=== PATIENT | female | born 1940 | race African-American/Black ===

== ENCOUNTER 2018-03-04 18:03 | Inpatient (IN) | payer MEDICARE, MEDICAID ==
[~2018-03-04] VITALS: Ht 154.9 cm; Wt 85.0 kg
[~2018-03-04 18:03] MED LIST: ALLO300T PO; CARV25TA2 PO; COLC0.6T34 PO; CRESTOR40 MG PO; FURO40TA4 PO; GLIP5TAB10 PO; LOSA25TA4 PO
[2018-03-04] MEDS ORDERED: ASPIRIN 325 MG TABLET PO ONE (18:15)
--- NOTE | 2018-03-04 18:24 | EKG ---
[facility] [address] [place] [address] Test Date: 2018-03-04 Test Time: 18:19:04 Pat Name: LINDA PULIDO Department: Room: Gender: Female [employer]: : 1940 Requested By: NASREEN ESTEVEZ Order Number: [id number] Reading MD: Hunter Steel MD Measurements Intervals [place] Rate: 83 P: 64 CT: 182 QRS: 95 QRSD: 152 T: -71 QT: 414 QTc: 492 Interpretive Statements SINUS RHYTHM PROBABLE V-PACING Electronically Signed On 03-05-2018 10:44:32 CDT by Hunter Steel MD
[2018-03-04 18:30] LABS: BASO % 0 % (0-3); EOS % 0 % (0-3); HEMATOCRIT 35.7 % (36.0-47.0); HEMOGLOBIN 11.6 g/dL (12.0-15.5); LYMPH # 1.6 x10^3/uL (1.0-4.8); LYMPH % 26 % (24-48); MEAN CORPUSCULAR HEMOGLOBIN 28 pg (25-35); MEAN CORPUSCULAR HGB CONC 32 g/dL (31-37); MEAN CORPUSCULAR VOLUME 87 fL (79-100); MONO # 0.7 x10^3/uL (0.0-1.1); MONO % 11 % (0-9); NEUT % 63 % (31-73); PLATELET COUNT 183 x10^3/uL (140-400); RED BLOOD COUNT 4.11 x10^6/uL (3.50-5.40); RED CELL DISTRIBUTION WIDTH 17.2 % (11.5-14.5); WHITE BLOOD COUNT 6.3 x10^3/uL (4.0-11.0)
[2018-03-04 18:36] LABS: BILIRUBIN,URINE NEGATIVE (NEG); CLARITY,URINE CLEAR; COLOR,URINE YELLOW; NITRITE,URINE NEGATIVE (NEG); PH,URINE 6.5; PROTEIN,URINE NEGATIVE (NEG-TRACE)
[2018-03-04 18:43] LABS: CALCIUM 9.1 mg/dL (8.5-10.1); CREATININE 1.6 mg/dL (0.6-1.0); GFR 37.9; POTASSIUM 4.1 mmol/L (3.5-5.1)
[2018-03-04 18:46] LABS: BACTERIA,URINE MODERATE /HPF (0-FEW); HYALINE CASTS, URINE FEW /HPF; RBC,URINE 0 /HPF (0-2); SQUAMOUS EPITHELIAL CELL,UR MANY /LPF
[2018-03-04 18:50] LABS: ALBUMIN 3.7 g/dL (3.4-5.0); ALBUMIN/GLOBULIN RATIO 0.9 (1.0-1.7); MAGNESIUM 2.4 mg/dL (1.8-2.4); TOTAL BILIRUBIN 0.3 mg/dL (0.2-1.0); TOTAL PROTEIN 7.6 g/dL (6.4-8.2)
--- NOTE | 2018-03-04 19:40 | PHYS DOC ---
Past Medical History Past Medical History: Diabetes-Type II, High Cholesterol, Heart Disease, Hypertension Past Surgical History: Cholecystectomy Additional Information: Nonsmoker Alcohol Use: None Drug Use: None Adult General Chief Complaint Chief Complaint: CHEST PAIN-CARDIAC NATURE HPI HPI 77-year-old female presents with report of "chest pressure" which started at approximately 1730 this afternoon. Patient reports radiation up into her neck. Reports some associated shortness of breath. Patient also reports she has been having some pain and discomfort behind her right knee. Denies leg swelling. Reports cardiac risk factors of prior CAD, high blood pressure, high cholesterol , and diabetes. Patient reports she felt very dizzy at that time. Denies fever or chills. Denies recent trauma. Review of Systems Review of Systems Constitutional: Denies fever or chills [] Eyes: Denies change in visual acuity, redness, or eye pain [] HENT: Denies nasal congestion or sore throat [] Respiratory: Denies cough or shortness of breath [] Cardiovascular: Reports chest pressure; denies palpitations GI: Denies abdominal pain, nausea, vomiting, or diarrhea [] : Denies dysuria or hematuria [] Musculoskeletal: Denies back pain or joint pain [] Integument: Denies rash or skin lesions [] Neurologic: Denies headache, focal weakness or sensory changes; reports dizziness Complete systems were reviewed and found to be within normal limits, except as documented in this note. Current Medications Current Medications Current Medications Medications (Trade) Dose Ordered Sig/Talha Start Time Stop Time Status Last Admin Dose Admin Aspirin (Flakita Aspirin) 325 mg 1X ONCE 03/04/18 18:15 03/04/18 18:46 DC Ceftriaxone Sodium 50 ml @ 100 mls/hr 1X ONCE 03/04/18 19:30 03/04/18 19:59 DC 03/04/18 21:20 100 MLS/HR Allergies Allergies Physical Exam Physical Exam Constitutional: Well developed, well nourished, no acute distress, non-toxic appearance. [] HENT: Normocephalic, atraumatic, oropharynx moist Eyes: PERRL, EOMI, conjunctiva normal, no discharge. [] Neck: Normal range of motion, no tenderness, supple, no stridor. [] Cardiovascular: Heart rate regular rhythm, no murmur [] Lungs & Thorax: Bilateral breath sounds clear to auscultation [] Abdomen: Soft, no tenderness Skin: Warm, dry, no erythema, no rash. [] Back: No tenderness, no CVA tenderness. [] Extremities: No tenderness, ROM intact, no edema. [] Neurologic: Alert and oriented X 3, normal motor function, normal sensory function, no focal deficits noted. [] Psychologic: Affect normal, judgement normal, mood normal. [] Current Patient Data Vital Signs Vital Signs Date Time Temp Pulse Resp B/P (MAP) Pulse Ox O2 Delivery O2 Flow Rate FiO2 03/04/18 21:00 78 20 138/68 (91) 100 Room Air 03/04/18 18:03 98.2 98.2 Lab Values Laboratory Tests Test 03/04/18 18:25 03/04/18 18:30 White Blood Count 6.3 x10^3/uL (4.0-11.0) Red Blood Count 4.11 x10^6/uL (3.50-5.40) Hemoglobin 11.6 g/dL (12.0-15.5) L Hematocrit 35.7 % (36.0-47.0) L Mean Corpuscular Volume 87 fL (79-100) Mean Corpuscular Hemoglobin 28 pg (25-35) Mean Corpuscular Hemoglobin Concent 32 g/dL (31-37) Red Cell Distribution Width 17.2 % (11.5-14.5) H Platelet Count 183 x10^3/uL (140-400) Neutrophils (%) (Auto) 63 % (31-73) Lymphocytes (%) (Auto) 26 % (24-48) Monocytes (%) (Auto) 11 % (0-9) H Eosinophils (%) (Auto) 0 % (0-3) Basophils (%) (Auto) 0 % (0-3) Neutrophils # (Auto) 4.0 x10^3uL (1.8-7.7) Lymphocytes # (Auto) 1.6 x10^3/uL (1.0-4.8) Monocytes # (Auto) 0.7 x10^3/uL (0.0-1.1) Eosinophils # (Auto) 0.0 x10^3/uL (0.0-0.7) Basophils # (Auto) 0.0 x10^3/uL (0.0-0.2) D-Dimer (Roro) 0.67 ug/mlFEU (0.00-0.50) H Sodium Level 141 mmol/L (136-145) Potassium Level 4.1 mmol/L (3.5-5.1) Chloride Level 106 mmol/L (98-107) Carbon Dioxide Level 27 mmol/L (21-32) Anion Gap 8 (6-14) Blood Urea Nitrogen 27 mg/dL (7-20) H Creatinine 1.6 mg/dL (0.6-1.0) H Estimated GFR (Cockcroft-Gault) 37.9 BUN/Creatinine Ratio 17 (6-20) Glucose Level 122 mg/dL (70-99) H Calcium Level 9.1 mg/dL (8.5-10.1) Magnesium Level 2.4 mg/dL (1.8-2.4) Total Bilirubin 0.3 mg/dL (0.2-1.0) Aspartate Amino Transferase (AST) 17 U/L (15-37) Alanine Aminotransferase (ALT) 23 U/L (14-59) Alkaline Phosphatase 80 U/L (46-116) Creatine Kinase 151 U/L (26-192) Creatine Kinase MB (Mass) 0.9 ng/mL (0.0-3.6) Creatine Kinase MB Relative Index 0.6 % (0-4) Troponin I Quantitative < 0.017 ng/mL (0.000-0.055) KP-Mlp-N-Type Natriuretic Peptide 1495 pg/mL (0-449) H Total Protein 7.6 g/dL (6.4-8.2) Albumin 3.7 g/dL (3.4-5.0) Albumin/Globulin Ratio 0.9 (1.0-1.7) L Lipase 151 U/L (73-393) Urine Collection Type Unknown Urine Color Yellow Urine Clarity Clear Urine pH 6.5 Urine Specific [place] 1.020 Urine Protein Negative mg/dL (NEG-TRACE) Urine Glucose (UA) Negative mg/dL (NEG) Urine Ketones (Stick) Negative mg/dL (NEG) Urine Blood Negative (NEG) Urine Nitrite Negative (NEG) Urine Bilirubin Negative (NEG) Urine Urobilinogen Dipstick 1.0 mg/dL (0.2 mg/dL) Urine Leukocyte Esterase Trace (NEG) Urine RBC 0 /HPF (0-2) Urine WBC 5-10 /HPF (0-4) Urine Squamous Epithelial Cells Many /LPF Urine Bacteria Moderate /HPF (0-FEW) Urine Hyaline Casts Few /HPF Urine Mucus Slight /LPF Laboratory Tests 03/04/18 18:25 Laboratory Tests 03/04/18 18:25 EKG EKG @1819 Paced at 84bpm, nonspecific t wave inversions to II-III, avF and V4-V6, NO ST elevation Radiology/Procedures Radiology/Procedures PROCEDURE: VENOUS LOWER EXTREMITY RIGHT Ultrasound venous Doppler INDICATION:RT POST KNEE PAIN, NO KNOWN INJURY TECHNIQUE: Grayscale, color Doppler and spectral waveform ultrasound images of the right lower extremities deep veins obtained. COMPARISON: None FINDINGS: The interrogated deep veins are compressible and demonstrate evidence of blood flow with normal respiratory variation and response to augmentation. IMPRESSION: No sonographic evidence of acute DVT of the right lower extremity deep veins. Electronically signed by: Donald Camp DO (03/04/2018 8:45 PM) [facility] CXR 2 view (preliminary interpretation by ED physician): No acute process Course & Med Decision Making Course & Med Decision Making Pertinent Labs and Imaging studies reviewed. (See chart for details) Patient presents with reported chest pain with radiation to neck. Significant cardiac risk factors. Patient also complaining of right leg tenderness behind knee. EKG stable. Labs obtained and posted to chart. Initial troponin within normal limits. D-dimer elevated. Unable to obtain CTA given patient's renal insufficiency. VQ scan pending. Right leg venous Doppler negative. UA with signs of infection vs contamination. Empiric antibiotics given. Patient requiring admission for further evaluation and treatment. Discussed with Dr. Luz (hospitalist) who is in agreement with admission. Discussed findings and plan with patient and family, who acknowledge understanding and agreement. Dragon Disclaimer Dragon Disclaimer This electronic medical record was generated, in whole or in part, using a voice recognition dictation system. Departure Departure Impression: Primary Impression: Chest pain Additional Impressions: Elevated d-dimer UTI (urinary tract infection) Disposition: ADMITTED INPATIENT Admitting Physician: Davion Luz Condition: GUARDED Referrals: RAFAEL PINEDA Jr, MD (PCP) Problem Qualifiers Primary Impression: Chest pain Chest pain type: unspecified Qualified Codes: R07.9 - Chest pain, unspecified Additional Impressions: UTI (urinary tract infection) Urinary tract infection type: acute cystitis Hematuria presence: without hematuria Qualified Codes: N30.00 - Acute cystitis without hematuria NASREEN ESTEVEZ DO Mar 04, 2018 19:40
[2018-03-04] MEDS ORDERED: CARV12.52 PO (19:51)
[2018-03-04] MEDS ORDERED: CRESTOR40 MG PO ×2 (19:58)
--- NOTE | 2018-03-04 20:49 | RAD ---
Ultrasound venous Doppler INDICATION:RT POST KNEE PAIN, NO KNOWN INJURY TECHNIQUE: Grayscale, color Doppler and spectral waveform ultrasound images of the right lower extremities deep veins obtained. COMPARISON: None FINDINGS: The interrogated deep veins are compressible and demonstrate evidence of blood flow with normal respiratory variation and response to augmentation. IMPRESSION: No sonographic evidence of acute DVT of the right lower extremity deep veins. Electronically signed by: Donald Camp DO (03/04/2018 8:45 PM) [facility]
[2018-03-04] MEDS ORDERED: ONDANSETRON PF 4 MG/2 ML VIAL. IV PRN (21:30)
[2018-03-04] MEDS ORDERED: DEXTROSE 50% 25 GM / 50ML DISP.SYRIN. IV PRN (21:30)
[2018-03-04 22:20] VITALS: BP 155/83
[2018-03-04] MEDS ORDERED: FURO-69 PO (23:30)
[2018-03-04] MEDS ORDERED: ASPI81TA59 PO (23:33)
[2018-03-05 03:10] VITALS: BP 107/52
[2018-03-05 07:00] VITALS: BP 140/63
[2018-03-05] MEDS ORDERED: INSULIN LISPRO 300 UNITS/3 ML INSULN.PEN. SQ SCH (08:00)
--- NOTE | 2018-03-05 08:59 | PDOC1 ---
History and Physical Date of Admission Date of Admission DATE: 03/05/18 TIME: 08:51 Identification/Chief Complaint Chief Complaint chest pain Source Source: Chart review, Patient History of Present Illness History of Present Illness Ms. Couch, is a 77-year-old female, PCP Dr. Jack, Cardiology Dr Suarez at , admit with sudden pain to chest, feels anxious, and "chest pressure" from left chest to neck. Pain started last evening at a buddhism event She hasd another indicent of pain this AM, pain with walking and then short of breath. Patient also reports she has been having some pain and discomfort behind her right knee, over the past 3 months, without swelling, "like the tendons are pulling on me" Reports cardiac risk factors of prior CAD, high blood pressure, high cholesterol, and diabetes. strong family history of CAD "all 9 siblings" Past Medical History Cardiovascular: AFIB (very remote), CHF, HTN GI: No pertinent hx Heme/Onc: No pertinent hx Hepatobiliary: No pertinent hx Psych: No pertinent hx Rheumatologic: Gout Infectious disease: No pertinent hx Endocrine: Diabetes Family History Family History: Alzheimer's Disease Social History Smoke: No ALCOHOL: none Drugs: None Current Problem List Problem List Problems Medical Problems: (1) Chest pain Status: Acute (2) Elevated d-dimer Status: Acute (3) UTI (urinary tract infection) Status: Acute Current Medications Current Medications Current Medications Aspirin (Flakita Aspirin) 325 mg 1X ONCE PO ; Start 03/04/18 at 18:15; Stop 03/04 at 18:46; Status DC Ceftriaxone Sodium 50 ml @ 100 mls/hr 1X ONCE IV Last administered on at 21:20; Start 03/04/18 at 19:30; Stop 03/04/18 at 19:59; Status DC Ondansetron HCl (Zofran) 4 mg PRN Q8HRS PRN IV NAUSEA/VOMITING 1ST CHOICE; Start 03/04/18 at 21:30; Stop 03/05/18 at 21:29 Insulin Human Lispro (HumaLOG) 0-5 UNITS TIDWMEALS SQ ; Start 03/05/18 at 08:00 Dextrose (Dextrose 50%-Water Syringe) 12.5 gm PRN Q15MIN PRN IV SEE COMMENTS; Start 03/04/18 at 21:30 Allopurinol (Zyloprim) 300 mg DAILY PO ; Start 03/05/18 at 09:00 Aspirin (Children'S Aspirin) 81 mg DAILY PO ; Start 03/05/18 at 09:00 Carvedilol (Coreg) 12.5 mg BIDWMEALS PO ; Start 03/05/18 at 09:00 Furosemide (Lasix) 20 mg DAILY PO ; Start 03/05/18 at 09:00 Glipizide (Glucotrol) 12.5 mg DAILY PO ; Start 03/05/18 at 09:00; Status UNV Losartan Potassium (Cozaar) 12.5 mg DAILY PO ; Start 03/05/18 at 09:00 Non-Formulary Medication (Rosuvastatin Calcium (Crestor)) 0.5 tab 3X/WEEK PO ; Start 03/05/18 at 09:00; Status UNV Active Scripts Active Reported Children's Aspirin (Aspirin) 81 Mg Tab.chew 81 Mg PO DAILY Lasix (Furosemide) 20 Mg Tablet 1 Tab PO DAILY Crestor (Rosuvastatin Calcium) 40 Mg Tablet 0.5 Tab PO 3X/WEEK Dose 20mg on Monday and Monday Carvedilol 12.5 Mg Tablet 12.5 Mg PO BIDWMEALS Allopurinol 300 Mg Tablet 1 Tab PO DAILY Losartan Potassium 25 Mg Tablet 0.5 Tab PO DAILY Glipizide 5 Mg Tablet 2.5 Tab PO DAILY Allergies Allergies: Coded Allergies: Sulfa (Sulfonamide Antibiotics) (Verified Allergy, Intermediate, 03/04/18) ROS General: No: Chills, Night Sweats, Fatigue, Malaise, Appetite, Other PSYCHOLOGICAL ROS: No: Anxiety, Behavioral Disorder, Concentration difficultie , Decreased libido, Depression, Disorientation, Hallucinations, Hostility, Irritablity, Memory difficulties, Mood Swings, Obsessive thoughts, Physical abuse, Sexual abuse, Sleep disturbances, Suicidal ideation, Other Eyes: No Blurry vision, No Decreased vision, No Double vision, No Dry eyes, No Excessive tearing, No Eye Pain, No Itchy Eyes, No Loss of vision, No Photophobia , No Scotomata, No Uses contacts, No Uses glasses, No Other HEENT: No: Heacaches, Visual Changes, Hearing change, Nasal congestion, Nasal discharge, Oral lesions, Sinus pain, Sore Throat, Epistaxis, Sneezing, Snoring, Tinnitus, Vertigo, Vocal changes, Other Respiratory: No: Cough, Hemoptysis, Orthopnea, Pleuritic Pain, Shortness of breath, SOB with excertion, Sputum Changes, Stridor, Tachypnea, Wheezing, Other Cardiovascular: yes Chest Pain; No Palpitations, No Orthopnea, No Paroxysmal Noc. Dyspnea, No Edema, No Lt Headedness, No Other Gastrointestinal: Yes Nausea; No Vomiting, No Abdominal Pain, No Diarrhea, No Constipation, No Melena, No Hematochezia, No Other Genitourinary: No Dysuria, No Frequency, No Incontinence, No Hematuria, No Retention, No Discharge, No Urgency, No Pain, No Flank Pain, No Other, No , No , No , No , No , No , No Musculoskeletal: Yes Joint Pain; No Gait Disturbance, No Joint Stiffness, No Joint Swelling, No Muscle Pain, No Muscular Weakness, No Pain In:, No Swelling In:, No Other Neurological: No Behavorial Changes, No Bowel/Bladder ControlChng, No Confusion , No Dizziness, No Gait Disturbance, No Headaches, No Impaired Coord/balance, No Memory Loss, No Numbness/Tingling, No Seizures, No Speech Problems, No Tremors, No Visual Changes, No Weakness, No Other Skin: Yes Dry Skin; No Eczema, No Hair Changes, No Lumps, No Mole Changes, No Mottling, No Nail Changes, No Pruritus, No Rash, No Skin Lesion Changes, No Other, No Acne Physical Exam General: Alert, Oriented X3, Cooperative, mild distress HEENT: Atraumatic, PERRLA, EOMI Heart: S1S2, RRR, no gallops, no murmurs Rectal Exam: deferred Extremities: No cyanosis, No edema, Normal pulses Skin: No rashes Neuro: Normal speech, Normal tone, Sensation intact, Cranial nerves 3-12 NL Psych/Mental Status: Mental status NL, Mood NL Vitals Vitals Vital Signs Date Time Temp Pulse Resp B/P (MAP) Pulse Ox O2 Delivery O2 Flow Rate FiO2 03/05/18 07:00 97.9 76 18 140/63 (88) 99 Room Air 97.9 Labs Labs Laboratory Tests Test 03/04/18 18:25 03/04/18 18:30 03/05/18 00:30 03/05/18 03:35 White Blood Count 6.3 x10^3/uL (4.0-11.0) Red Blood Count 4.11 x10^6/uL (3.50-5.40) Hemoglobin 11.6 g/dL (12.0-15.5) Hematocrit 35.7 % (36.0-47.0) Mean Corpuscular Volume 87 fL (79-100) Mean Corpuscular Hemoglobin 28 pg (25-35) Mean Corpuscular Hemoglobin Concent 32 g/dL (31-37) Red Cell Distribution Width 17.2 % (11.5-14.5) Platelet Count 183 x10^3/uL (140-400) Neutrophils (%) (Auto) 63 % (31-73) Lymphocytes (%) (Auto) 26 % (24-48) Monocytes (%) (Auto) 11 % (0-9) Eosinophils (%) (Auto) 0 % (0-3) Basophils (%) (Auto) 0 % (0-3) Neutrophils # (Auto) 4.0 x10^3uL (1.8-7.7) Lymphocytes # (Auto) 1.6 x10^3/uL (1.0-4.8) Monocytes # (Auto) 0.7 x10^3/uL (0.0-1.1) Eosinophils # (Auto) 0.0 x10^3/uL (0.0-0.7) Basophils # (Auto) 0.0 x10^3/uL (0.0-0.2) D-Dimer (Roro) 0.67 ug/mlFEU (0.00-0.50) Sodium Level 141 mmol/L (136-145) Potassium Level 4.1 mmol/L (3.5-5.1) Chloride Level 106 mmol/L (98-107) Carbon Dioxide Level 27 mmol/L (21-32) Anion Gap 8 (6-14) Blood Urea Nitrogen 27 mg/dL (7-20) Creatinine 1.6 mg/dL (0.6-1.0) Estimated GFR (Cockcroft-Gault) 37.9 BUN/Creatinine Ratio 17 (6-20) Glucose Level 122 mg/dL (70-99) Calcium Level 9.1 mg/dL (8.5-10.1) Magnesium Level 2.4 mg/dL (1.8-2.4) Total Bilirubin 0.3 mg/dL (0.2-1.0) Aspartate Amino Transf (AST/SGOT) 17 U/L (15-37) Alanine Aminotransferase (ALT/SGPT) 23 U/L (14-59) Alkaline Phosphatase 80 U/L (46-116) Creatine Kinase 151 U/L (26-192) Creatine Kinase MB (Mass) 0.9 ng/mL (0.0-3.6) Creatine Kinase MB Relative Index 0.6 % (0-4) Troponin I Quantitative < 0.017 ng/mL (0.000-0.055) < 0.017 ng/mL (0.000-0.055) < 0.017 ng/mL (0.000-0.055) CI-Ukn-B-Type Natriuretic Peptide 1495 pg/mL (0-449) Total Protein 7.6 g/dL (6.4-8.2) Albumin 3.7 g/dL (3.4-5.0) Albumin/Globulin Ratio 0.9 (1.0-1.7) Lipase 151 U/L (73-393) Urine Collection Type Unknown Urine Color Yellow Urine Clarity Clear Urine pH 6.5 Urine Specific [place] 1.020 Urine Protein Negative mg/dL (NEG-TRACE) Urine Glucose (UA) Negative mg/dL (NEG) Urine Ketones (Stick) Negative mg/dL (NEG) Urine Blood Negative (NEG) Urine Nitrite Negative (NEG) Urine Bilirubin Negative (NEG) Urine Urobilinogen Dipstick 1.0 mg/dL (0.2 mg/dL) Urine Leukocyte Esterase Trace (NEG) Urine RBC 0 /HPF (0-2) Urine WBC 5-10 /HPF (0-4) Urine Squamous Epithelial Cells Many /LPF Urine Bacteria Moderate /HPF (0-FEW) Urine Hyaline Casts Few /HPF Urine Mucus Slight /LPF Test 03/05/18 08:21 Glucose (Fingerstick) 94 mg/dL (70-99) Laboratory Tests Test 03/04/18 18:25 03/04/18 18:30 03/05/18 00:30 03/05/18 03:35 White Blood Count 6.3 x10^3/uL (4.0-11.0) Red Blood Count 4.11 x10^6/uL (3.50-5.40) Hemoglobin 11.6 g/dL (12.0-15.5) Hematocrit 35.7 % (36.0-47.0) Mean Corpuscular Volume 87 fL (79-100) Mean Corpuscular Hemoglobin 28 pg (25-35) Mean Corpuscular Hemoglobin Concent 32 g/dL (31-37) Red Cell Distribution Width 17.2 % (11.5-14.5) Platelet Count 183 x10^3/uL (140-400) Neutrophils (%) (Auto) 63 % (31-73) Lymphocytes (%) (Auto) 26 % (24-48) Monocytes (%) (Auto) 11 % (0-9) Eosinophils (%) (Auto) 0 % (0-3) Basophils (%) (Auto) 0 % (0-3) Neutrophils # (Auto) 4.0 x10^3uL (1.8-7.7) Lymphocytes # (Auto) 1.6 x10^3/uL (1.0-4.8) Monocytes # (Auto) 0.7 x10^3/uL (0.0-1.1) Eosinophils # (Auto) 0.0 x10^3/uL (0.0-0.7) Basophils # (Auto) 0.0 x10^3/uL (0.0-0.2) D-Dimer (Roro) 0.67 ug/mlFEU (0.00-0.50) Sodium Level 141 mmol/L (136-145) Potassium Level 4.1 mmol/L (3.5-5.1) Chloride Level 106 mmol/L (98-107) Carbon Dioxide Level 27 mmol/L (21-32) Anion Gap 8 (6-14) Blood Urea Nitrogen 27 mg/dL (7-20) Creatinine 1.6 mg/dL (0.6-1.0) Estimated GFR (Cockcroft-Gault) 37.9 BUN/Creatinine Ratio 17 (6-20) Glucose Level 122 mg/dL (70-99) Calcium Level 9.1 mg/dL (8.5-10.1) Magnesium Level 2.4 mg/dL (1.8-2.4) Total Bilirubin 0.3 mg/dL (0.2-1.0) Aspartate Amino Transf (AST/SGOT) 17 U/L (15-37) Alanine Aminotransferase (ALT/SGPT) 23 U/L (14-59) Alkaline Phosphatase 80 U/L (46-116) Creatine Kinase 151 U/L (26-192) Creatine Kinase MB (Mass) 0.9 ng/mL (0.0-3.6) Creatine Kinase MB Relative Index 0.6 % (0-4) Troponin I Quantitative < 0.017 ng/mL (0.000-0.055) < 0.017 ng/mL (0.000-0.055) < 0.017 ng/mL (0.000-0.055) FH-Pbf-W-Type Natriuretic Peptide 1495 pg/mL (0-449) Total Protein 7.6 g/dL (6.4-8.2) Albumin 3.7 g/dL (3.4-5.0) Albumin/Globulin Ratio 0.9 (1.0-1.7) Lipase 151 U/L (73-393) Urine Collection Type Unknown Urine Color Yellow Urine Clarity Clear Urine pH 6.5 Urine Specific [place] 1.020 Urine Protein Negative mg/dL (NEG-TRACE) Urine Glucose (UA) Negative mg/dL (NEG) Urine Ketones (Stick) Negative mg/dL (NEG) Urine Blood Negative (NEG) Urine Nitrite Negative (NEG) Urine Bilirubin Negative (NEG) Urine Urobilinogen Dipstick 1.0 mg/dL (0.2 mg/dL) Urine Leukocyte Esterase Trace (NEG) Urine RBC 0 /HPF (0-2) Urine WBC 5-10 /HPF (0-4) Urine Squamous Epithelial Cells Many /LPF Urine Bacteria Moderate /HPF (0-FEW) Urine Hyaline Casts Few /HPF Urine Mucus Slight /LPF Test 03/05/18 08:21 Glucose (Fingerstick) 94 mg/dL (70-99) VTE Prophylaxis Ordered VTE Prophylaxis Devices: No VTE Pharmacological Prophylaxi: Yes Assessment/Plan Assessment/Plan chest pain, angina with shortness of breath Dm2 htn hx remote afib BMI 35 CKD 3 admit, CV consult BHAVIN NUNEZ MD Mar 05, 2018 08:59
[2018-03-05] MEDS ORDERED: DEXTROSE 50% 25 GM / 50ML DISP.SYRIN. IV PRN (09:00)
[2018-03-05] MEDS ORDERED: ATORVASTATIN CALCIUM 40 MG TABLET. PO SCH (09:00)
[2018-03-05] MEDS ORDERED: MORPHINE IR 15 MG TABLET PO PRN (09:00)
[2018-03-05] MEDS ORDERED: ATORVASTATIN CALCIUM 40 MG TABLET. ONE (09:00)
[2018-03-05 09:03] LABS: CHOLESTEROL/HDL RATIO 3.5
--- NOTE | 2018-03-05 09:15 | RAD ---
EXAM: PA and lateral views of the chest DATE: 03/04/2018 7:32 PM INDICATION: chest pain COMPARISON: 02/10/2016, 05/04/2015 FINDINGS: Cardiac generator pack obscures a portion of the left chest with leads in stable position. The heart is not enlarged. Mediastinal and hilar contours are normal. No focal parenchymal airspace opacity. No pleural effusion or pneumothorax. 1. No radiographic evidence for acute cardiopulmonary process. IMPRESSION: Electronically signed by: Roby Hayes MD (03/05/2018 9:11 AM) [id number]
--- NOTE | 2018-03-05 10:18 | PDOC2 ---
RAVINDERABE Jayant ADOPTION COUNSELOR 03/05/18 1018: CARDIAC CONSULT DATE OF CONSULT Date of Consult DATE: 03/05/18 TIME: 10:16 REASON FOR CONSULT Reason for Consult: chest pain REFERRING PHYSICIAN Referring Physician: Renetta SOURCE Source: Chart review, Patient HISTORY OF PRESENT ILLNESS HISTORY OF PRESENT ILLNESS 77 year old female with a history of bilateral upper chest "fullness" radiating up into the neck and jaw since at least the first of the year. Has gotten progressively worse and was much worse in the last 24 hours. Started about 1730 after mormon services on Monday and was associated with dyspnea and headache. No associated nausea or dizziness. Worst episode earlier today. Has not been able to walk for the mormon to the car in parking lot for many months. Chest pressure symptoms not clearly associated with exertion. Daily awakening with headache and monitors BP at home but can not provide readings. EKG is V-paced. Troponin levels not consistent with AMI. NT- proBNP of 1495 with Cr of 1.6. Usually follows with Dr. Suarez @ . Reason for Visit: unstable angina PAST MEDICAL HISTORY Cardiovascular: AFIB, CHF, HTN, Hyperlipidemia, Other (PPM - [employer]) Rheumatologic: Gout Endocrine: Diabetes PAST SURGICAL HISTORY Past Surgical History: Pacemaker ([employer]), Cholecystectomy FAMILY HISTORY Family History: Alzheimer's Disease, Heart Disease (multiple siblings) SOCIAL HISTORY Smoke: No ALCOHOL: none Drugs: None Lives: with Family CURRENT MEDICATIONS CURRENT MEDICATIONS Current Medications Medications (Trade) Dose Ordered Sig/Talha Route PRN Reason Start Time Stop Time Status Last Admin Dose Admin Ceftriaxone Sodium 50 ml @ 100 mls/hr 1X ONCE IV 03/04/18 19:30 03/04/18 19:59 DC 03/04/18 21:20 ALLERGIES ALLERGIES: Coded Allergies: Sulfa (Sulfonamide Antibiotics) (Verified Allergy, Intermediate, 03/04/18) ROS Review of System 14 point review with pertinent positives in HPI PHYSICAL EXAM General: Alert, Oriented X3, Cooperative, No acute distress HEENT: Atraumatic, PERRLA, Mucous membr. moist/pink Lungs: Clear to auscultation, Normal air movement Heart: Normal S1, Normal S2, No murmurs, Other (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 site) Abdomen: Normal bowel sounds, Soft Extremities: No edema, Normal pulses Skin: No rashes Neuro: Normal speech Psych/Mental Status: Mental status NL, Mood NL MUSCULOSKELETAL: No deformity VITALS VITALS Vital Signs Date Time Temp Pulse Resp B/P (MAP) Pulse Ox O2 Delivery O2 Flow Rate FiO2 03/05/18 07:00 97.9 76 18 140/63 (88) 99 Room Air 97.9 LABS Lab: Laboratory Tests Test 03/04/18 18:25 03/04/18 18:30 03/05/18 00:30 03/05/18 03:35 White Blood Count 6.3 x10^3/uL (4.0-11.0) Red Blood Count 4.11 x10^6/uL (3.50-5.40) Hemoglobin 11.6 g/dL (12.0-15.5) Hematocrit 35.7 % (36.0-47.0) Mean Corpuscular Volume 87 fL (79-100) Mean Corpuscular Hemoglobin 28 pg (25-35) Mean Corpuscular Hemoglobin Concent 32 g/dL (31-37) Red Cell Distribution Width 17.2 % (11.5-14.5) Platelet Count 183 x10^3/uL (140-400) Neutrophils (%) (Auto) 63 % (31-73) Lymphocytes (%) (Auto) 26 % (24-48) Monocytes (%) (Auto) 11 % (0-9) Eosinophils (%) (Auto) 0 % (0-3) Basophils (%) (Auto) 0 % (0-3) Neutrophils # (Auto) 4.0 x10^3uL (1.8-7.7) Lymphocytes # (Auto) 1.6 x10^3/uL (1.0-4.8) Monocytes # (Auto) 0.7 x10^3/uL (0.0-1.1) Eosinophils # (Auto) 0.0 x10^3/uL (0.0-0.7) Basophils # (Auto) 0.0 x10^3/uL (0.0-0.2) D-Dimer (Roro) 0.67 ug/mlFEU (0.00-0.50) Sodium Level 141 mmol/L (136-145) Potassium Level 4.1 mmol/L (3.5-5.1) Chloride Level 106 mmol/L (98-107) Carbon Dioxide Level 27 mmol/L (21-32) Anion Gap 8 (6-14) Blood Urea Nitrogen 27 mg/dL (7-20) Creatinine 1.6 mg/dL (0.6-1.0) Estimated GFR (Cockcroft-Gault) 37.9 BUN/Creatinine Ratio 17 (6-20) Glucose Level 122 mg/dL (70-99) Calcium Level 9.1 mg/dL (8.5-10.1) Magnesium Level 2.4 mg/dL (1.8-2.4) Total Bilirubin 0.3 mg/dL (0.2-1.0) Aspartate Amino Transf (AST/SGOT) 17 U/L (15-37) Alanine Aminotransferase (ALT/SGPT) 23 U/L (14-59) Alkaline Phosphatase 80 U/L (46-116) Creatine Kinase 151 U/L (26-192) Creatine Kinase MB (Mass) 0.9 ng/mL (0.0-3.6) Creatine Kinase MB Relative Index 0.6 % (0-4) Troponin I Quantitative < 0.017 ng/mL (0.000-0.055) < 0.017 ng/mL (0.000-0.055) < 0.017 ng/mL (0.000-0.055) EW-Jbo-Q-Type Natriuretic Peptide 1495 pg/mL (0-449) Total Protein 7.6 g/dL (6.4-8.2) Albumin 3.7 g/dL (3.4-5.0) Albumin/Globulin Ratio 0.9 (1.0-1.7) Lipase 151 U/L (73-393) Urine Collection Type Unknown Urine Color Yellow Urine Clarity Clear Urine pH 6.5 Urine Specific [place] 1.020 Urine Protein Negative mg/dL (NEG-TRACE) Urine Glucose (UA) Negative mg/dL (NEG) Urine Ketones (Stick) Negative mg/dL (NEG) Urine Blood Negative (NEG) Urine Nitrite Negative (NEG) Urine Bilirubin Negative (NEG) Urine Urobilinogen Dipstick 1.0 mg/dL (0.2 mg/dL) Urine Leukocyte Esterase Trace (NEG) Urine RBC 0 /HPF (0-2) Urine WBC 5-10 /HPF (0-4) Urine Squamous Epithelial Cells Many /LPF Urine Bacteria Moderate /HPF (0-FEW) Urine Hyaline Casts Few /HPF Urine Mucus Slight /LPF Triglycerides Level 107 mg/dL (0-150) Cholesterol Level 159 mg/dL (0-200) LDL Cholesterol, Calculated 92 mg/dL (0-100) VLDL Cholesterol, Calculated 21 mg/dL (0-40) Non-HDL Cholesterol Calculated 113 mg/dL (0-129) HDL Cholesterol 46 mg/dL (40-60) Cholesterol/HDL Ratio 3.5 Test 03/05/18 08:21 Glucose (Fingerstick) 94 mg/dL (70-99) IMAGES IMAGES CXR without acute process EKG EKG V-paced ASSESSMENT/PLAN ASSESSMENT/PLAN 1. Unstable angina --progressive symptoms since the first of the year --EKG = V-paced; Troponin not consistent with AMI --CR 1.6; discussed with primary account officer -- hydrate today and cath tomorrow; procedure discussed with patient and she is agreeable --TTE to evaluate LVEF and assess for WMA --request records from [facility] --continue ASA, BB, and statin therapy 2. PPM --ask [employer] to interrogate 3. atrial fib by history --burden as not on OAC --PPM interrogation may provide this information 4. HTN --control with oral meds 5. HLD --controlled with statin therapy 6. YOGESH --hydrate prior to cardiac cath 7. DM, II --defer to primary service 8. elevated NT-proBNP associated with YOGESH --no supporting clinical findings --h/o dyspnea but no edema; aortic pressures and LVEDP on cath tomorrow ZAHEER LAU MD 03/05/18 1547: CARDIAC CONSULT ASSESSMENT/PLAN ASSESSMENT/PLAN Pt. seen and examined. Agree with above MARINE GEOLOGIST note. 77 y.o woman with unstable anginal symptoms. No clear other factors causing chest pain. Negative enzymes. Given her high pretest prob, will proceed with cath after adequate hydration. Thanks. Discussed r/b/a to cath, patient agreeable. ABE CASTELLON APRN Mar 05, 2018 10:18 ZAHEER LAU MD Mar 05, 2018 15:47
[2018-03-05 11:00] VITALS: BP 150/67
--- NOTE | 2018-03-05 11:30 | RAD ---
Ventilation perfusion exam History: Shortness of air for one day, chest pain, elevated d-dimer. Comparison: March 04, 2018 chest radiographs Findings: Ventilation perfusion examination was performed. Ventilation images were acquired after the patient inhaled 12 mCi of xenon-133 gas. Perfusion images were acquired after the patient was injected with 5.5 mCi of technetium 99m MAA. No mismatched perfusion defect is identified. Impression: 1. There is low probability for pulmonary embolic disease. Electronically signed by: Leobardo Rodriguez MD (03/05/2018 11:26 AM) [id number]
[2018-03-05] MEDS: glipiZIDE 5 MG TABLET PO SCH (11:33)
[2018-03-05] MEDS: ASPIRIN CHEWABLE 81 MG TABLET. PO SCH (11:33)
[2018-03-05] MEDS: ALLOPURINOL 300 MG TABLET. PO SCH (11:34)
[2018-03-05] MEDS: CARVEDILOL 12.5 MG TABLET. PO SCH ×2 (11:34→17:23)
[2018-03-05] MEDS: LOSARTAN POTASSIUM 25 MG TABLET. PO SCH (11:34)
[2018-03-05] MEDS: FUROSEMIDE 20 MG TABLET PO SCH (11:35)
[2018-03-05] MEDS: IV NORMAL SALINE 1000ML BAG 1,000 ML IV SCH (11:35)
[2018-03-05] MEDS: ENOXAPARIN 30 MG/0.3 ML SYRINGE. SQ SCH (12:00)
[2018-03-05] MEDS: INSULIN LISPRO 300 UNITS/3 ML INSULN.PEN. SQ SCH ×2 (12:00→17:00)
[2018-03-05 15:00] VITALS: BP 128/63
[2018-03-05 19:02] VITALS: BP 117/57
[2018-03-05 23:00] VITALS: BP 112/53
[2018-03-06] VITALS (11 sets, daily range): BP systolic 125–151; BP diastolic 60–68
[2018-03-06] MEDS: IV NORMAL SALINE 1000ML BAG 1,000 ML IV SCH (00:02)
[2018-03-06 05:54] LABS: BASO % 0 % (0-3); EOS % 0 % (0-3); HEMATOCRIT 32.7 % (36.0-47.0); HEMOGLOBIN 10.5 g/dL (12.0-15.5); LYMPH # 1.5 x10^3/uL (1.0-4.8); LYMPH % 29 % (24-48); MEAN CORPUSCULAR HEMOGLOBIN 28 pg (25-35); MEAN CORPUSCULAR HGB CONC 32 g/dL (31-37); MEAN CORPUSCULAR VOLUME 87 fL (79-100); MONO # 0.6 x10^3/uL (0.0-1.1); MONO % 11 % (0-9); NEUT # 3.1 x10^3uL (1.8-7.7); NEUT % 60 % (31-73); PLATELET COUNT 160 x10^3/uL (140-400); RED BLOOD COUNT 3.75 x10^6/uL (3.50-5.40); RED CELL DISTRIBUTION WIDTH 16.8 % (11.5-14.5); WHITE BLOOD COUNT 5.2 x10^3/uL (4.0-11.0)
[2018-03-06 06:15] LABS: ALBUMIN 3.4 g/dL (3.4-5.0); CALCIUM 8.8 mg/dL (8.5-10.1); CREATININE 1.2 mg/dL (0.6-1.0); GFR 52.9; POTASSIUM 4.1 mmol/L (3.5-5.1); TOTAL BILIRUBIN 0.3 mg/dL (0.2-1.0); TOTAL PROTEIN 6.8 g/dL (6.4-8.2)
[2018-03-06] MEDS: INSULIN LISPRO 300 UNITS/3 ML INSULN.PEN. SQ SCH ×3 (08:00→17:00)
[2018-03-06] MEDS: glipiZIDE 5 MG TABLET PO SCH (09:00)
[2018-03-06] MEDS: LOSARTAN POTASSIUM 25 MG TABLET. PO SCH (10:41)
[2018-03-06] MEDS: CARVEDILOL 12.5 MG TABLET. PO SCH ×2 (10:41→18:09)
[2018-03-06] MEDS: ASPIRIN CHEWABLE 81 MG TABLET. PO SCH (10:41)
[2018-03-06] MEDS ORDERED: LIDOCAINE 1% PF 30 ML VIAL. ONE (11:42)
[2018-03-06] MEDS ORDERED: IODIXANOL 320 MG/ML 100 ML VIAL. ONE (11:42)
[2018-03-06] MEDS ORDERED: fentaNYL PF VIAL 100 MCG/2 ML VIAL ONE (11:45)
[2018-03-06] MEDS ORDERED: MIDAZOLAM HCL/PF 2 MG/2 ML VIAL. ONE (11:46)
[2018-03-06] MEDS ORDERED: fentaNYL PF VIAL 100 MCG/2 ML VIAL IV ONE (12:00)
[2018-03-06] MEDS ORDERED: NITROGLYCERIN 200 MCG/2 ML SYRINGE FOR CATH/VASC LAB. IART ONE (12:00)
[2018-03-06] MEDS ORDERED: VERAPAMIL 5 MG/2 ML VIAL. IART ONE (12:00)
[2018-03-06] MEDS ORDERED: HEPARIN for IV BOLUS 10,000 UNIT/10 ML VIAL. IART ONE (12:00)
[2018-03-06] MEDS ORDERED: IODIXANOL 320 MG/ML 100 ML VIAL. IART ONE (12:00)
[2018-03-06] MEDS ORDERED: MIDAZOLAM HCL/PF 2 MG/2 ML VIAL. IV ONE (12:00)
[2018-03-06] MEDS ORDERED: LIDOCAINE 1% PF 30 ML VIAL. INJ ONE (12:00)
[2018-03-06] MEDS: ENOXAPARIN 30 MG/0.3 ML SYRINGE. SQ SCH (12:00)
[2018-03-06] MEDS ORDERED: HEPARIN for IV BOLUS 10,000 UNIT/10 ML VIAL. ONE (12:11)
[2018-03-06] MEDS ORDERED: NITROGLYCERIN 200 MCG/2 ML SYRINGE FOR CATH/VASC LAB. ONE (12:12)
[2018-03-06] MEDS ORDERED: VERAPAMIL 5 MG/2 ML VIAL. ONE (12:12)
--- NOTE | 2018-03-06 12:14 | CARD ---
MR#: [id number] Date of Study: 03/06/2018 Ordering Physician: ABE CASTELLON, Referring Physician: Cuca FINCH: Mary Guerra APPROVED REPORT EXAM: Two-dimensional and M-mode echocardiogram with Doppler and color Doppler. Other Information Quality : GoodHR: 79bpm INDICATION Chest Pain 2D DIMENSIONS RVDd1.7 (2.9-3.5cm)Left Atrium(2D)4.0 (1.6-4.0cm) IVSd0.7 (0.7-1.1cm)Aortic Root(2D)2.5 (2.0-3.7cm) LVDd6.2 (3.9-5.9cm)LVOT Diameter1.8 (1.8-2.4cm) PWd0.9 (0.7-1.1cm)LVDs4.4 (2.5-4.0cm) FS (%) 28.7 %SV104.2 ml LVEF(%)54.3 (>50%) Aortic Valve AoV Peak Rey.127.8cm/sAoV VTI26.8cm AO Peak GR.6.5mmHgLVOT VTI 18.06cm AO Mean GR.4mmHg Mitral Valve MV E Mamfmzqf505.5cm/sMV DECEL [id number] MV A Lzfwrntn249.9cm/sE/A Ratio0.9 Tricuspid Valve TR P. [id number]/sRAP [id number] TR Peak Gr.35rjHzFUPO00ryLm LEFT VENTRICLE The Left Ventricle is moderately dilated. There is normal left ventricular wall thickness. The systol ic function is severely impaired. EF 20-25% There is global hypokinesis of the left ventricle. Transm itral Doppler flow pattern is Grade II-pseudonormal filling dynamics. RIGHT VENTRICLE The right ventricle is normal size. There is normal right ventricular wall thickness. The right ventr icular systolic function is normal. ATRIA The left atrium is mildly dilated. The right atrium size is normal. The interatrial septum is intact with no evidence for an atrial septal defect or patent foramen ovale as noted on 2-D or Doppler imagi ng. AORTIC VALVE The aortic valve is normal in structure and function. Doppler and Color Flow revealed no significant aortic regurgitation. There is no significant aortic valvular stenosis. MITRAL VALVE The mitral valve is mildly thickened. There is no mitral valve stenosis. Doppler and Color-flow revea led moderate mitral regurgitation. TRICUSPID VALVE The tricuspid valve is normal in structure and function. Doppler and Color Flow revealed mild tricusp id regurgitation. The PA pressure was estimated at 53 mmHg. There is no tricuspid valve stenosis. PULMONIC VALVE Doppler and Color Flow revealed no pulmonic valvular regurgitation. There is no pulmonic valvular wilfrid nosis. GREAT VESSELS The aortic root is normal in size. The IVC is normal in size and collapses >50% with inspiration. PERICARDIAL EFFUSION There is no evidence of significant pericardial effusion. Critical Notification Critical Value: No <Conclusion> The systolic function is severely impaired. EF 20-25% There is global hypokinesis of the left ventricle. Doppler and Color-flow revealed moderate mitral regurgitation. Doppler and Color Flow revealed mild tricuspid regurgitation. The PA pressure was estimated at 53 mmH g. Signed by : Hunter Steel, Electronically Approved : 03/06/2018 12:14:14
[2018-03-06] MEDS ORDERED: CONTRAST GIVEN. MC PRN (12:30)
[2018-03-06] MEDS: FUROSEMIDE 20 MG TABLET PO SCH (13:16)
[2018-03-06] MEDS: ALLOPURINOL 300 MG TABLET. PO SCH (13:16)
--- NOTE | 2018-03-06 14:28 | PDOC ---
PROGRESS NOTES Chief Complaint Chief Complaint chest pain, angina with shortness of breath Dm2 htn hx remote afib acute systolic CHF exacerbation EF 20% BMI 35 CKD 3 ppm claribel,vasomotor ckd3 plan: fu with card cath today cont home meds on ivf SSI History of Present Illness History of Present Illness feels ok, no chest pain Vitals Vitals Vital Signs Date Time Temp Pulse Resp B/P (MAP) Pulse Ox O2 Delivery O2 Flow Rate FiO2 03/06/18 12:43 70 20 100 Nasal Cannula 2.0 03/06/18 11:00 97.6 142/64 (90) 97.6 Physical Exam General: Alert, Oriented X3, Cooperative, No acute distress Heart: Regular rate, Normal S1, Normal S2, No murmurs, Other (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 site) Lungs: Crackles (bl mild) Abdomen: Normal bowel sounds, Soft Extremities: No edema, Normal pulses Skin: No rashes Labs LABS Laboratory Tests Test 03/05/18 17:08 03/05/18 20:48 03/06/18 04:25 03/06/18 13:02 Glucose (Fingerstick) 80 mg/dL (70-99) 173 mg/dL (70-99) 70 mg/dL (70-99) White Blood Count 5.2 x10^3/uL (4.0-11.0) Red Blood Count 3.75 x10^6/uL (3.50-5.40) Hemoglobin 10.5 g/dL (12.0-15.5) Hematocrit 32.7 % (36.0-47.0) Mean Corpuscular Volume 87 fL (79-100) Mean Corpuscular Hemoglobin 28 pg (25-35) Mean Corpuscular Hemoglobin Concent 32 g/dL (31-37) Red Cell Distribution Width 16.8 % (11.5-14.5) Platelet Count 160 x10^3/uL (140-400) Neutrophils (%) (Auto) 60 % (31-73) Lymphocytes (%) (Auto) 29 % (24-48) Monocytes (%) (Auto) 11 % (0-9) Eosinophils (%) (Auto) 0 % (0-3) Basophils (%) (Auto) 0 % (0-3) Neutrophils # (Auto) 3.1 x10^3uL (1.8-7.7) Lymphocytes # (Auto) 1.5 x10^3/uL (1.0-4.8) Monocytes # (Auto) 0.6 x10^3/uL (0.0-1.1) Eosinophils # (Auto) 0.0 x10^3/uL (0.0-0.7) Basophils # (Auto) 0.0 x10^3/uL (0.0-0.2) Sodium Level 142 mmol/L (136-145) Potassium Level 4.1 mmol/L (3.5-5.1) Chloride Level 107 mmol/L (98-107) Carbon Dioxide Level 25 mmol/L (21-32) Anion Gap 10 (6-14) Blood Urea Nitrogen 28 mg/dL (7-20) Creatinine 1.2 mg/dL (0.6-1.0) Estimated GFR (Cockcroft-Gault) 52.9 BUN/Creatinine Ratio 23 (6-20) Glucose Level 88 mg/dL (70-99) Calcium Level 8.8 mg/dL (8.5-10.1) Total Bilirubin 0.3 mg/dL (0.2-1.0) Aspartate Amino Transf (AST/SGOT) 20 U/L (15-37) Alanine Aminotransferase (ALT/SGPT) 18 U/L (14-59) Alkaline Phosphatase 71 U/L (46-116) Total Protein 6.8 g/dL (6.4-8.2) Albumin 3.4 g/dL (3.4-5.0) Albumin/Globulin Ratio 1.0 (1.0-1.7) Assessment and Plan Assessmemt and Plan Problems Medical Problems: (1) Chest pain Status: Acute (2) Elevated d-dimer Status: Acute (3) UTI (urinary tract infection) Status: Acute Comment Review of Relevant I have reviewed the following items jahaira (where applicable) has been applied. Labs Laboratory Tests Test 03/04/18 18:25 03/04/18 18:30 03/05/18 00:30 03/05/18 03:35 White Blood Count 6.3 x10^3/uL (4.0-11.0) Red Blood Count 4.11 x10^6/uL (3.50-5.40) Hemoglobin 11.6 g/dL (12.0-15.5) Hematocrit 35.7 % (36.0-47.0) Mean Corpuscular Volume 87 fL (79-100) Mean Corpuscular Hemoglobin 28 pg (25-35) Mean Corpuscular Hemoglobin Concent 32 g/dL (31-37) Red Cell Distribution Width 17.2 % (11.5-14.5) Platelet Count 183 x10^3/uL (140-400) Neutrophils (%) (Auto) 63 % (31-73) Lymphocytes (%) (Auto) 26 % (24-48) Monocytes (%) (Auto) 11 % (0-9) Eosinophils (%) (Auto) 0 % (0-3) Basophils (%) (Auto) 0 % (0-3) Neutrophils # (Auto) 4.0 x10^3uL (1.8-7.7) Lymphocytes # (Auto) 1.6 x10^3/uL (1.0-4.8) Monocytes # (Auto) 0.7 x10^3/uL (0.0-1.1) Eosinophils # (Auto) 0.0 x10^3/uL (0.0-0.7) Basophils # (Auto) 0.0 x10^3/uL (0.0-0.2) D-Dimer (Roro) 0.67 ug/mlFEU (0.00-0.50) Sodium Level 141 mmol/L (136-145) Potassium Level 4.1 mmol/L (3.5-5.1) Chloride Level 106 mmol/L (98-107) Carbon Dioxide Level 27 mmol/L (21-32) Anion Gap 8 (6-14) Blood Urea Nitrogen 27 mg/dL (7-20) Creatinine 1.6 mg/dL (0.6-1.0) Estimated GFR (Cockcroft-Gault) 37.9 BUN/Creatinine Ratio 17 (6-20) Glucose Level 122 mg/dL (70-99) Calcium Level 9.1 mg/dL (8.5-10.1) Magnesium Level 2.4 mg/dL (1.8-2.4) Total Bilirubin 0.3 mg/dL (0.2-1.0) Aspartate Amino Transf (AST/SGOT) 17 U/L (15-37) Alanine Aminotransferase (ALT/SGPT) 23 U/L (14-59) Alkaline Phosphatase 80 U/L (46-116) Creatine Kinase 151 U/L (26-192) Creatine Kinase MB (Mass) 0.9 ng/mL (0.0-3.6) Creatine Kinase MB Relative Index 0.6 % (0-4) Troponin I Quantitative < 0.017 ng/mL (0.000-0.055) < 0.017 ng/mL (0.000-0.055) < 0.017 ng/mL (0.000-0.055) LV-Mzv-N-Type Natriuretic Peptide 1495 pg/mL (0-449) Total Protein 7.6 g/dL (6.4-8.2) Albumin 3.7 g/dL (3.4-5.0) Albumin/Globulin Ratio 0.9 (1.0-1.7) Lipase 151 U/L (73-393) Urine Collection Type Unknown Urine Color Yellow Urine Clarity Clear Urine pH 6.5 Urine Specific [place] 1.020 Urine Protein Negative mg/dL (NEG-TRACE) Urine Glucose (UA) Negative mg/dL (NEG) Urine Ketones (Stick) Negative mg/dL (NEG) Urine Blood Negative (NEG) Urine Nitrite Negative (NEG) Urine Bilirubin Negative (NEG) Urine Urobilinogen Dipstick 1.0 mg/dL (0.2 mg/dL) Urine Leukocyte Esterase Trace (NEG) Urine RBC 0 /HPF (0-2) Urine WBC 5-10 /HPF (0-4) Urine Squamous Epithelial Cells Many /LPF Urine Bacteria Moderate /HPF (0-FEW) Urine Hyaline Casts Few /HPF Urine Mucus Slight /LPF Triglycerides Level 107 mg/dL (0-150) Cholesterol Level 159 mg/dL (0-200) LDL Cholesterol, Calculated 92 mg/dL (0-100) VLDL Cholesterol, Calculated 21 mg/dL (0-40) Non-HDL Cholesterol Calculated 113 mg/dL (0-129) HDL Cholesterol 46 mg/dL (40-60) Cholesterol/HDL Ratio 3.5 Test 03/05/18 08:21 03/05/18 12:11 03/05/18 17:08 03/05/18 20:48 Glucose (Fingerstick) 94 mg/dL (70-99) 166 mg/dL (70-99) 80 mg/dL (70-99) 173 mg/dL (70-99) Test 03/06/18 04:25 03/06/18 13:02 White Blood Count 5.2 x10^3/uL (4.0-11.0) Red Blood Count 3.75 x10^6/uL (3.50-5.40) Hemoglobin 10.5 g/dL (12.0-15.5) Hematocrit 32.7 % (36.0-47.0) Mean Corpuscular Volume 87 fL (79-100) Mean Corpuscular Hemoglobin 28 pg (25-35) Mean Corpuscular Hemoglobin Concent 32 g/dL (31-37) Red Cell Distribution Width 16.8 % (11.5-14.5) Platelet Count 160 x10^3/uL (140-400) Neutrophils (%) (Auto) 60 % (31-73) Lymphocytes (%) (Auto) 29 % (24-48) Monocytes (%) (Auto) 11 % (0-9) Eosinophils (%) (Auto) 0 % (0-3) Basophils (%) (Auto) 0 % (0-3) Neutrophils # (Auto) 3.1 x10^3uL (1.8-7.7) Lymphocytes # (Auto) 1.5 x10^3/uL (1.0-4.8) Monocytes # (Auto) 0.6 x10^3/uL (0.0-1.1) Eosinophils # (Auto) 0.0 x10^3/uL (0.0-0.7) Basophils # (Auto) 0.0 x10^3/uL (0.0-0.2) Sodium Level 142 mmol/L (136-145) Potassium Level 4.1 mmol/L (3.5-5.1) Chloride Level 107 mmol/L (98-107) Carbon Dioxide Level 25 mmol/L (21-32) Anion Gap 10 (6-14) Blood Urea Nitrogen 28 mg/dL (7-20) Creatinine 1.2 mg/dL (0.6-1.0) Estimated GFR (Cockcroft-Gault) 52.9 BUN/Creatinine Ratio 23 (6-20) Glucose Level 88 mg/dL (70-99) Calcium Level 8.8 mg/dL (8.5-10.1) Total Bilirubin 0.3 mg/dL (0.2-1.0) Aspartate Amino Transf (AST/SGOT) 20 U/L (15-37) Alanine Aminotransferase (ALT/SGPT) 18 U/L (14-59) Alkaline Phosphatase 71 U/L (46-116) Total Protein 6.8 g/dL (6.4-8.2) Albumin 3.4 g/dL (3.4-5.0) Albumin/Globulin Ratio 1.0 (1.0-1.7) Glucose (Fingerstick) 70 mg/dL (70-99) Laboratory Tests Test 03/05/18 17:08 03/05/18 20:48 03/06/18 04:25 03/06/18 13:02 Glucose (Fingerstick) 80 mg/dL (70-99) 173 mg/dL (70-99) 70 mg/dL (70-99) White Blood Count 5.2 x10^3/uL (4.0-11.0) Red Blood Count 3.75 x10^6/uL (3.50-5.40) Hemoglobin 10.5 g/dL (12.0-15.5) Hematocrit 32.7 % (36.0-47.0) Mean Corpuscular Volume 87 fL (79-100) Mean Corpuscular Hemoglobin 28 pg (25-35) Mean Corpuscular Hemoglobin Concent 32 g/dL (31-37) Red Cell Distribution Width 16.8 % (11.5-14.5) Platelet Count 160 x10^3/uL (140-400) Neutrophils (%) (Auto) 60 % (31-73) Lymphocytes (%) (Auto) 29 % (24-48) Monocytes (%) (Auto) 11 % (0-9) Eosinophils (%) (Auto) 0 % (0-3) Basophils (%) (Auto) 0 % (0-3) Neutrophils # (Auto) 3.1 x10^3uL (1.8-7.7) Lymphocytes # (Auto) 1.5 x10^3/uL (1.0-4.8) Monocytes # (Auto) 0.6 x10^3/uL (0.0-1.1) Eosinophils # (Auto) 0.0 x10^3/uL (0.0-0.7) Basophils # (Auto) 0.0 x10^3/uL (0.0-0.2) Sodium Level 142 mmol/L (136-145) Potassium Level 4.1 mmol/L (3.5-5.1) Chloride Level 107 mmol/L (98-107) Carbon Dioxide Level 25 mmol/L (21-32) Anion Gap 10 (6-14) Blood Urea Nitrogen 28 mg/dL (7-20) Creatinine 1.2 mg/dL (0.6-1.0) Estimated GFR (Cockcroft-Gault) 52.9 BUN/Creatinine Ratio 23 (6-20) Glucose Level 88 mg/dL (70-99) Calcium Level 8.8 mg/dL (8.5-10.1) Total Bilirubin 0.3 mg/dL (0.2-1.0) Aspartate Amino Transf (AST/SGOT) 20 U/L (15-37) Alanine Aminotransferase (ALT/SGPT) 18 U/L (14-59) Alkaline Phosphatase 71 U/L (46-116) Total Protein 6.8 g/dL (6.4-8.2) Albumin 3.4 g/dL (3.4-5.0) Albumin/Globulin Ratio 1.0 (1.0-1.7) Medications Current Medications Aspirin ([employer] Aspirin) 325 mg 1X ONCE PO ; Start 03/04/18 at 18:15; Stop 03/04 at 18:46; Status DC Ceftriaxone Sodium 50 ml @ 100 mls/hr 1X ONCE IV Last administered on at 21:20; Start 03/04/18 at 19:30; Stop 03/04/18 at 19:59; Status DC Ondansetron HCl (Zofran) 4 mg PRN Q8HRS PRN IV NAUSEA/VOMITING 1ST CHOICE; Start 03/04/18 at 21:30; Stop 03/05/18 at 21:29; Status DC Insulin Human Lispro (HumaLOG) 0-5 UNITS TIDWMEALS SQ ; Start 03/05/18 at 08:00 ; Stop 03/05/18 at 09:10; Status DC Dextrose (Dextrose 50%-Water Syringe) 12.5 gm PRN Q15MIN PRN IV SEE COMMENTS; Start 03/04/18 at 21:30; Stop 03/05/18 at 09:09; Status DC Allopurinol (Zyloprim) 300 mg DAILY PO Last administered on 03/06/18at 13:16; Start 03/05/18 at 09:00 Aspirin (Children'S Aspirin) 81 mg DAILY PO Last administered on 03/06/18at 10: 41; Start 03/05/18 at 09:00 Carvedilol (Coreg) 12.5 mg BIDWMEALS PO Last administered on 03/06/18at 10:41; Start 03/05/18 at 09:00 Furosemide (Lasix) 20 mg DAILY PO Last administered on 03/06/18at 13:16; Start 03/05/18 at 09:00 Glipizide (Glucotrol) 12.5 mg DAILY PO Last administered on 03/05/18at 11:33; Start 03/05/18 at 09:00 Losartan Potassium (Cozaar) 12.5 mg DAILY PO Last administered on 03/06/18at 10: 41; Start 03/05/18 at 09:00 Atorvastatin Calcium (Lipitor) 40 mg 3X/WEEK PO Last administered on 03/05/18at 11:41; Start 03/05/18 at 09:00 Enoxaparin Sodium (Lovenox Per Pharmacy Prophylaxis Dosing) 1 each PRN DAILY PRN MC SEE COMMENTS; Start 03/05/18 at 09:00 Morphine Sulfate (Morphine Ir) 15 mg PRN Q4HRS PRN PO PAIN; Start 03/05/18 at 09:00 Insulin Human Lispro (HumaLOG) 0-7 UNITS TIDWMEALS SQ ; Start 03/05/18 at 12:00 Dextrose (Dextrose 50%-Water Syringe) 12.5 gm PRN Q15MIN PRN IV SEE COMMENTS; Start 03/05/18 at 09:00 Enoxaparin Sodium (Lovenox 30mg Syringe) 30 mg Q24H SQ ; Start 03/05/18 at 12:00 Sodium Chloride 1,000 ml @ 75 mls/hr [id number] IV Last administered on at 00:02; Start 03/05/18 at 10:15 Iodixanol (Visipaque 320) 100 ml STK-MED ONCE .ROUTE ; Start 03/06/18 at 11:42; Stop 03/06/18 at 11:43; Status DC Lidocaine HCl (Xylocaine 1% Pf 30ml Vial) 30 ml STK-MED ONCE .ROUTE ; Start at 11:42; Stop 03/06/18 at 11:43; Status DC Heparin Sodium/ Sodium Chloride 1,000 ml @ As Directed STK-MED ONCE .ROUTE ; Start 03/06/18 at 11:42; Stop 03/06/18 at 11:43; Status DC Fentanyl Citrate (Fentanyl 2ml Vial) 100 mcg STK-MED ONCE .ROUTE ; Start at 11:45; Stop 03/06/18 at 11:46; Status DC Midazolam HCl (Versed) 2 mg STK-MED ONCE .ROUTE ; Start 03/06/18 at 11:46; Stop 03/06/18 at 11:47; Status DC Heparin Sodium (Porcine) (Heparin Sodium) 10,000 unit STK-MED ONCE .ROUTE ; Start 03/06/18 at 12:11; Stop 03/06/18 at 12:12; Status DC Verapamil HCl (Verapamil) 5 mg STK-MED ONCE .ROUTE ; Start 03/06/18 at 12:12; Stop 03/06/18 at 12:13; Status DC Nitroglycerin (Nitroglycerin) 200 mcg STK-MED ONCE .ROUTE ; Start 03/06/18 at 12 :12; Stop 03/06/18 at 12:13; Status DC Nitroglycerin (Nitroglycerin) 200 mcg 1X ONCE IART Last administered on at 12:00; Start 03/06/18 at 12:00; Stop 03/06/18 at 12:23; Status DC Verapamil HCl (Verapamil) 2.5 mg 1X ONCE IART Last administered on 03/06/18at 12:00; Start 03/06/18 at 12:00; Stop 03/06/18 at 12:23; Status DC Heparin Sodium (Porcine) (Heparin Sodium) 2,500 unit 1X ONCE IART Last administered on 03/06/18at 12:00; Start 03/06/18 at 12:00; Stop 03/06/18 at 12:23 ; Status DC Heparin Sodium/ Sodium Chloride (HEPARIN for ARTERIAL LINE FLUSH) 1,000 unit 1X ONCE IART Last administered on 03/06/18at 12:00; Start 03/06/18 at 12:00; Stop 03/06/18 at 12:23; Status DC Midazolam HCl (Versed) 2 mg 1X ONCE IV Last administered on 03/06/18at 12:00; Start 03/06/18 at 12:00; Stop 03/06/18 at 12:23; Status DC Fentanyl Citrate (Fentanyl 2ml Vial) 100 mcg 1X ONCE IV Last administered on at 12:00; Start 03/06/18 at 12:00; Stop 03/06/18 at 12:23; Status DC Iodixanol (Visipaque 320) 100 ml 1X ONCE IART Last administered on 03/06/18at 12:00; Start 03/06/18 at 12:00; Stop 03/06/18 at 12:23; Status DC Lidocaine HCl (Xylocaine 1% Pf 30ml Vial) 30 ml 1X ONCE INJ Last administered on 03/06/18at 12:00; Start 03/06/18 at 12:00; Stop 03/06/18 at 12:23; Status DC Info (CONTRAST GIVEN -- Rx MONITORING) 1 each PRN DAILY PRN MC SEE COMMENTS; Start 03/06/18 at 12:30; Stop 03/08/18 at 12:29 Active Scripts Active Reported Children's Aspirin (Aspirin) 81 Mg Tab.chew 81 Mg PO DAILY Lasix (Furosemide) 20 Mg Tablet 1 Tab PO DAILY Crestor (Rosuvastatin Calcium) 40 Mg Tablet 0.5 Tab PO 3X/WEEK Dose 20mg on Monday and Monday Carvedilol 12.5 Mg Tablet 12.5 Mg PO BIDWMEALS Allopurinol 300 Mg Tablet 1 Tab PO DAILY Losartan Potassium 25 Mg Tablet 0.5 Tab PO DAILY Glipizide 5 Mg Tablet 2.5 Tab PO DAILY Vitals/I & O Vital Sign - Last 24 Hours 03/05/18 03/05/18 03/05/18 03/05/18 15:00 17:23 19:02 20:00 Temp 98.2 98.6 98.2 98.6 Pulse 79 78 79 Resp 18 18 B/P (MAP) 128/63 (84) 117/57 (77) Pulse Ox 100 98 O2 Delivery Room Air Room Air Room Air 03/05/18 03/06/18 03/06/18 03/06/18 23:00 03:00 07:30 08:05 Temp 97.7 97.8 97.8 97.7 97.8 97.8 Pulse 72 75 79 Resp 22 20 20 B/P (MAP) 112/53 (72) 136/63 (87) 151/68 (95) Pulse Ox 98 98 100 O2 Delivery Room Air Room Air Room Air Room Air 03/06/18 03/06/18 03/06/18 03/06/18 10:41 10:41 11:00 12:00 Temp 97.6 97.6 Pulse 85 85 87 70 Resp 18 B/P (MAP) 142/64 (90) Pulse Ox 100 O2 Delivery Room Air 03/06/18 03/06/18 12:00 12:43 Pulse 70 Resp 15 20 Pulse Ox 100 O2 Delivery Nasal Cannula O2 Flow Rate 2.0 Intake and Output 03/05/18 03/05/18 03/06/18 15:00 23:00 07:00 Intake Total 180 ml Output Total 650 ml 475 ml Balance -650 ml -295 ml GONZÁLEZ ALCOCER MD Mar 06, 2018 14:28
--- NOTE | 2018-03-06 15:44 | PDOC3 ---
Discharge Summary [facility] Date of Admission: Mar 04, 2018 Discharge Date: Mar 06, 2018 Admitting Diagnosis chest pain, angina with shortness of breath Dm2 htn hx remote afib acute systolic CHF exacerbation EF 20% BMI 35 CKD 3 ppm claribel,vasomotor ckd3 Final Diagnosis CONSULTS card Procedures cath Brief Hospital Course Ms. Couch is a 77 old F, comes for chest pain and sob. Trop neg. EF only 20%. pt is compensated for chf. No chest pain or sob today. Cath done today, as per nurse, clean, and can be dced as per card. dc home. dc time 35min. Patient History: Unknown unknown Disposition home CONDITION AT DISCHARGE: Improved Scheduled Allopurinol (Allopurinol), 1 TAB PO DAILY, (Reported) Aspirin (Children's Aspirin), 81 MG PO DAILY, (Reported) Carvedilol (Carvedilol), 12.5 MG PO BIDWMEALS, (Reported) Furosemide (Lasix), 1 TAB PO DAILY, (Reported) Glipizide (Glipizide), 2.5 TAB PO DAILY, (Reported) Losartan Potassium (Losartan Potassium), 0.5 TAB PO DAILY, (Reported) Rosuvastatin Calcium (Crestor), 0.5 TAB PO 3X/WEEK, (Reported) Discontinued Medications Colchicine (Colcrys), 1 TAB PO DAILY, (Reported) Discontinued Reason: per [facility] Furosemide (Furosemide), 1 TAB PO DAILY, (Reported) Discontinued Reason: [facility] Rosuvastatin Calcium (Crestor), 40 MG PO HS, (Reported) Discontinued Reason: per [facility] GONZÁLEZ ALCOCER MD Mar 06, 2018 15:44
--- NOTE | 2018-03-07 07:39 | CARD ---
MR#: [id number] Date of Study: 03/06/2018 Ordering Physician: ABE CASTELLON, Referring Physician: STEVIE LANGE Tech: RT Alicia (R) APPROVED REPORT Technologist: RT Alicia (R) Nurse: Marbella Hopper RN Procedure(s) performed: Moderate Sedation: 30 min LHC, Coronary angiography, Left ventriculography HISTORY : The patient is a 77 year-old female with a history of . INDICATION The indication(s) include : unstable angina , dyspnea. PROCEDURE NARRATIVE INFORMED CONSENT: After explaining the risks and benefits of the procedure and alternatives, informed consent was obtained. The patient was brought electively to the cardiac catheterization lab. A timeout was performed confi rming the patient's name, date of , procedure, and site of procedure. All necessary personnel w ere wearing the appropriate protective equipment and radiation monitor devices. (See nursing notes for medications administered). ACCESS: The right wrist was sterilely prepped and draped in the usual fashion. The right wrist was infiltrat ed with 1 mL of 2% lidocaine for subcutaneous anesthesia. A 6 [place] Terumo glide sheath was inserte d into the right radial artery without difficulty. CORONARY ANGIOGRAPHY: Right and left coronary angiography was performed using a 6Fr TIG 4.0 catheter. Left ventricular en d diastolic pressure was obtained with a pigtail catheter and pullback was performed after left ventr iculography. All catheter exchanges and advancements were performed over a guidewire. CLOSURE: At case completion the right radial sheath was removed and a Terumo radial band was applied with 13 m l of air. COMPLICATIONS: The patient tolerated the procedure well and there were no immediate complications. FINDINGS: HEMODYNAMICS: LVEDP 15 mm Hg No gradient on LV to aortic pullback. AO: 128/78 LEFT VENTRICULOGRAM: EF 30% Moderate to severe global hypokinesis. CORONARY ANGIOGRAPHY: LM is a large caliber vessel with normal angiographic appearance. LAD is a large caliber vessel with mild proximal to mid luminal irregularities. D1 is a moderate caliber vessel with normal angiographic appearance. LCx is a large caliber dominant vessel with normal angiographic appearance. OM1 is a moderate caliber vessel with normal angiographic appearance. LPDA is a moderate caliber vessel with normal angiographic appearance. RCA is a small caliber non-dominant vessel with normal angiographic appearance. Conclusion 1. No significant coronary disease. 2. Normal left sided filling pressures. Recommendations Aggressive medical therapy. Signed by : Hunter Steel, Electronically Approved : 03/07/2018 07:39:14
[2018-03-07] MEDS ORDERED: ENOXAPARIN 40 MG/0.4 ML SYRINGE. SQ SCH (12:00)
== END 2018-03-06 18:35 | disposition home or self-care (01) | DRG 286 ==
LOC: ER 18:03 → 2 SOUTH 21:23
PROVIDERS: ADMIT Internal Medicine; ATTEND Internal Medicine
PROC: 4A023N7 Measurement of Cardiac Sampling and Pressure, Left Heart, Percutaneous Approach (ICD-10-PCS; principal; 2018-03-06)
PROC: B2111ZZ Fluoroscopy of Multiple Coronary Arteries using Low Osmolar Contrast (ICD-10-PCS; 2018-03-06)
PROC: B2151ZZ Fluoroscopy of Left Heart using Low Osmolar Contrast (ICD-10-PCS; 2018-03-06)
DX: I20.0 Unstable angina (principal); I50.23 Acute on chronic systolic (congestive) heart failure; N17.0 Acute kidney failure with tubular necrosis; I13.0 Hypertensive heart and chronic kidney disease with heart failure and stage 1 through stage 4 chronic kidney disease, or unspecified chronic kidney disease; N39.0 Urinary tract infection, site not specified; E11.22 Type 2 diabetes mellitus with diabetic chronic kidney disease; E78.00 Pure hypercholesterolemia, unspecified; E78.5 Hyperlipidemia, unspecified; I48.91 Unspecified atrial fibrillation; N18.3 Chronic kidney disease, stage 3 (moderate); I25.10 Atherosclerotic heart disease of native coronary artery without angina pectoris; R79.1 Abnormal coagulation profile; Z82.0 Family history of epilepsy and other diseases of the nervous system; Z82.49 Family history of ischemic heart disease and other diseases of the circulatory system; Z88.2 Allergy status to sulfonamides; Z79.899 Other long term (current) drug therapy; Z90.49 Acquired absence of other specified parts of digestive tract; Z95.0 Presence of cardiac pacemaker; Z79.82 Long term (current) use of aspirin
CPT/HCPCS: 36415; 71046; 78582; 80053; 80061; 81001; 82553; 82962; 83036; 83690; 83735; 83880; 84484; 85025; 85379; 87086; 93005; 93306; 93458; 93971; 96365; 96374; 99152; 99153; A9540; A9558; C1769; C1892; J0690; J1644; J1815; J2250; J3010; J3490; J7030; 99285-25